=== PATIENT | female | born 1965 | race Caucasian/White ===

== ENCOUNTER 2017-04-30 13:59 | Emergency (ER) | payer OTHER ==
[~2017-04-30] VITALS: Ht 160 cm; Wt 74.5 kg
[2017-04-30 14:01] VITALS: BP 144/72; PULSE 86; RESP 16; TEMP 97.8; O2SAT 99
[2017-04-30] MEDS ORDERED: KETOROLAC TROMETHAMINE 30 MG/ML (IVP) VIAL IV PUSH ONE (16:15)
[2017-04-30] MEDS ORDERED: SODIUM CHLORIDE 0.9% FLUSH 10 ML FLUSH IVF PRN (16:15)
[2017-04-30] MEDS ORDERED: ONDANSETRON HCL 4 MG/2 ML VIAL IVP ONE (16:15)
--- NOTE | 2017-04-30 16:15 | PD ---
HPI Chief Complaint: Flank/Kidney Pain Time Seen by Provider: 16:05 Travel History International Travel<30 days: No Contact w/Intl Traveler<30days: No Traveled to known affect area: No History of Present Illness HPI 51-year-old female presents to the emergency department with ongoing left-sided flank pain which she states started approximately 3 weeks ago. Patient was seen by her primary care physician Dr. Pino earlier today, diagnosed with UTI with question of kidney stone. He sent her here for further evaluation and treatment. Patient currently states her pain is 6 out of 10. No vomiting. She states no fever or chills. She had hematuria in her urine. Patient has history of kidney stone in the past when she lived in [place]. She did not require stenting at that time. She is allergic to penicillin. [facility] Social History Alcohol Use: Yes Tobacco Use: No Substance Use: No Allergies-Medications (Allergen,Severity, Reaction): Coded Allergies: Penicillins (Verified Allergy, Unknown, 04/30/17) Reported Meds & Prescriptions Reported Meds & Active Scripts Active Meloxicam 15 Mg Tab 15 Mg PO DAILY Reported Plaquenil (Hydroxychloroquine Sulfate) 200 Mg Tab 200 Mg PO DAILY Take with food Trazodone (Trazodone HCl) 100 Mg Tablet 100 Mg PO HS Review of Systems Except as stated in HPI: all other systems reviewed are Neg General / Constitutional: No: Fever, Chills Eyes: No: Visual changes HENT: No: Headaches Cardiovascular: No: Chest Pain or Discomfort Respiratory: No: Shortness of Breath Gastrointestinal: Positive: Nausea, No: Vomiting, Diarrhea, Abdominal Pain Genitourinary: Positive: Hematuria, Flank Pain, No: Urgency, Frequency, Dysuria , Nocturia, Decreased Urinary Output Musculoskeletal: No: Pain Skin: No Rash Neurologic: No: Weakness Psychiatric: No: Depression Endocrine: No: Polydipsia Hematologic/Lymphatic: No: Easy Bruising Physical Exam Narrative GENERAL: Patient appears in moderate distress. SKIN: Warm and dry. Normal color. Normal turgor. No rash HEAD: Atraumatic. Normocephalic. EYES: Pupils equal and round. No scleral icterus. No injection or drainage. ENT: No nasal bleeding or discharge. Mucous membranes pink and moist. NECK: Trachea midline. No JVD. CARDIOVASCULAR: Regular rate and rhythm. RESPIRATORY: No accessory muscle use. Clear to auscultation. Breath sounds equal bilaterally. GASTROINTESTINAL: Abdomen soft, non-tender, nondistended. Hepatic and splenic margins not palpable. Question CVA tenderness on the left greater than the right. MUSCULOSKELETAL: Extremities without clubbing, cyanosis, or edema. No obvious deformities. NEUROLOGICAL: Awake and alert. No obvious cranial nerve deficits. Motor grossly within normal limits. Five out of 5 muscle strength in the arms and legs. Normal speech. PSYCHIATRIC: Appropriate mood and affect; insight and judgment normal. Data Data Last Documented VS Vital Signs Date Time Temp Pulse Resp B/P (MAP) Pulse Ox O2 Delivery O2 Flow Rate FiO2 04/30/17 19:18 71 16 115/71 (86) 98 04/30/17 14:01 97.8 Orders Orders Complete Blood Count With Diff (04/30/17 14:44) Comprehensive Metabolic Panel (04/30/17 14:44) Urinalysis - C+S If Indicated (04/30/17 14:44) Lipase (04/30/17 14:44) Act Partial Throm Time (Ptt) (04/30/17 14:44) Prothrombin Time / Inr (Pt) (04/30/17 14:44) Iv Access Insert/Monitor (04/30/17 16:06) Ecg Monitoring (04/30/17 16:06) Sodium Chloride 0.9% Flush (Ns Flush) (04/30/17 16:15) Ondansetron Inj (Zofran Inj) (04/30/17 16:15) Ct Abd/Pel W/O Iv Contrast (04/30/17 16:06) Ketorolac Inj (Toradol Inj) (04/30/17 16:15) Urine Culture (04/30/17 18:00) Ed Discharge Order (04/30/17 19:27) Labs Laboratory Tests Test 04/30/17 15:44 04/30/17 18:00 White Blood Count 10.9 TH/MM3 Red Blood Count 5.10 MIL/MM3 Hemoglobin 15.8 GM/DL Hematocrit 46.1 % Mean Corpuscular Volume 90.5 FL Mean Corpuscular Hemoglobin 31.1 PG Mean Corpuscular Hemoglobin Concent 34.3 % Red Cell Distribution Width 13.2 % Platelet Count 270 TH/MM3 Mean Platelet Volume 8.2 FL Neutrophils (%) (Auto) 70.8 % Lymphocytes (%) (Auto) 21.6 % Monocytes (%) (Auto) 6.2 % Eosinophils (%) (Auto) 0.6 % Basophils (%) (Auto) 0.8 % Neutrophils # (Auto) 7.7 TH/MM3 Lymphocytes # (Auto) 2.3 TH/MM3 Monocytes # (Auto) 0.7 TH/MM3 Eosinophils # (Auto) 0.1 TH/MM3 Basophils # (Auto) 0.1 TH/MM3 CBC Comment DIFF FINAL Differential Comment Prothrombin Time 10.0 SEC Prothromb Time International Ratio 1.0 RATIO Activated Partial Thromboplast Time 25.4 SEC Blood Urea Nitrogen 8 MG/DL Creatinine 1.02 MG/DL Random Glucose 81 MG/DL Total Protein 8.1 GM/DL Albumin 4.7 GM/DL Calcium Level 9.2 MG/DL Alkaline Phosphatase 94 U/L Aspartate Amino Transf (AST/SGOT) 23 U/L Alanine Aminotransferase (ALT/SGPT) 31 U/L Total Bilirubin 0.4 MG/DL Sodium Level 140 MEQ/L Potassium Level 3.7 MEQ/L Chloride Level 104 MEQ/L Carbon Dioxide Level 30.0 MEQ/L Anion Gap 6 MEQ/L Estimat Glomerular Filtration Rate 57 ML/MIN Lipase 134 U/L Urine Color YELLOW Urine Turbidity CLEAR Urine pH 5.5 Urine Specific [place] 1.009 Urine Protein TRACE mg/dL Urine Glucose (UA) NEG mg/dL Urine Ketones NEG mg/dL Urine Occult Blood SMALL Urine Nitrite NEG Urine Bilirubin NEG Urine Urobilinogen LESS THAN 2.0 MG/DL Urine Leukocyte Esterase TRACE Urine RBC 4 /hpf Urine WBC 9 /hpf Urine Squamous Epithelial Cells 2 /hpf Urine Bacteria FEW /hpf Urine Mucus FEW /lpf Microscopic Urinalysis Comment CULTURE INDICATED MDM Medical Decision Making Medical Screen Exam Complete: Yes Emergency Medical Condition: Yes Medical Record Reviewed: Yes Differential Diagnosis . Urinary Infection. Pyelonephritis. Renal colic. Renal stones. Narrative Course Patient is medically stable at time of exam. IV access is obtained patient is given 30 mg Toradol IV. Patient labs are drawn including CBC, CMP, and urinalysis. CT of the abdomen/pelvis ordered without contrast. Labs are unremarkable. Urine does show some signs of infection. Urine cultures placed. CT scan shows no sign of active pyelonephritis or renal stone or retraction. Patient had relief with Toradol IV. Patient already on antibiotic from her primary care physician. Patient should continue the antibiotic as previously prescribed, Patient is given meloxicam 15 mg daily #10 for the pain. Patient should rest and push fluids and follow-up with her primary care physician within the week. Diagnosis Primary Impression: UTI (urinary tract infection) Qualified Codes: N30.00 - Acute cystitis without hematuria Referrals: Primary Care Physician Patient Instructions: Dysuria (ED), General Instructions Additional Instructions: Labs are unremarkable. Urine does show some signs of infection. Urine cultures placed. CT scan shows no sign of active pyelonephritis or renal stone or retraction. Patient had relief with Toradol IV. Patient already on antibiotic from her primary care physician. Patient should continue the antibiotic as previously prescribed, Patient is given meloxicam 15 mg daily #10 for the pain. Patient should rest and push fluids and follow-up with her primary care physician within the week. Med/Other Pt SpecificInfo: Prescription(s) given Scripts Meloxicam (Meloxicam) 15 Mg Tab 15 MG PO DAILY for Arthritis Pain, #10 TAB 0 Refills Prov: Tay Muse MD 04/30/17 Disposition: 01 DISCHARGE HOME Condition: Stable Mehdi Murillo Apr 30, 2017 16:15
[2017-04-30 16:18] LABS: AUTOMATED NEUTROPHIL # 7.7 TH/MM3 (1.8-7.7); BASOPHIL # 0.1 TH/MM3 (0-0.2); BASOPHIL % 0.8 % (0.0-2.0); EOSINOPHIL # 0.1 TH/MM3 (0-0.4); EOSINOPHIL % 0.6 % (0.0-4.0); HEMATOCRIT 46.1 % (35.0-46.0); HEMOGLOBIN 15.8 GM/DL (11.6-15.3); LYMPH % 21.6 % (9.0-44.0); LYMPHOCYTE # 2.3 TH/MM3 (1.0-4.8); MEAN CELL VOLUME 90.5 FL (80.0-100.0); MEAN CORPUSCULAR HEMOGLOBIN 31.1 PG (27.0-34.0); MEAN CORPUSCULAR HGB CONC 34.3 % (32.0-36.0); MEAN PLATELET VOLUME 8.2 FL (7.0-11.0); MONO % 6.2 % (0.0-8.0); MONOCYTE # 0.7 TH/MM3 (0-0.9); NEUT % 70.8 % (16.0-70.0); PLATELET COUNT 270 TH/MM3 (150-450); RED CELL DISTRIBUTION WIDTH 13.2 % (11.6-17.2); WHITE BLOOD COUNT 10.9 TH/MM3 (4.0-11.0)
[2017-04-30 16:33] LABS: ALBUMIN 4.7 GM/DL (3.4-5.0); AST (GOT) 23 U/L (15-37); BLOOD UREA NITROGEN 8 MG/DL (7-18); CALCIUM 9.2 MG/DL (8.5-10.1); CHLORIDE 104 MEQ/L (98-107); CREATININE 1.02 MG/DL (0.50-1.00); GLOMERULAR FILTRATION RATE 57 ML/MIN (>89); GLUCOSE,RANDOM 81 MG/DL (74-106); LIPASE 134 U/L (73-393); SODIUM (NA) 140 MEQ/L (136-145)
[2017-04-30 16:35] LABS: ALT (GPT) 31 U/L (10-53)
[2017-04-30 16:36] LABS: ALKALINE PHOSPHATASE 94 U/L (45-117); TOTAL BILIRUBIN ADULT 0.4 MG/DL (0.2-1.0); TOTAL PROTEIN 8.1 GM/DL (6.4-8.2)
--- NOTE | 2017-04-30 17:39 | RADRPT ---
EXAM DATE/TIME: 04/30/2017 16:54 [place] COMPARISON: No previous studies available for comparison. INDICATIONS : Left flank pain for three weeks. ORAL CONTRAST: No oral contrast ingested. RADIATION DOSE: 10.44 CTDIvol (mGy) MEDICAL HISTORY : None SURGICAL HISTORY : None. ENCOUNTER: Initial ACUITY: 3 weeks PAIN SCALE: 8/10 LOCATION: Left upper quadrant TECHNIQUE: Volumetric scanning of the abdomen and pelvis was performed. Using automated exposure control and ad justment of the mA and/or kV according to patient size, radiation dose was kept as low as reasonably achievable to obtain optimal diagnostic quality images. DICOM format image data is available electro nically for review and comparison. FINDINGS: Lung base is are clear. The liver is free of focal defects Spleen, pancreas, adrenals and kidneys are unremarkable There are no renal calcifications evident. There is no inflammatory changes There is limited or adenopathy In the pelvis or diverticuli in the sigmoid colon. There is 4 cm cystic mass left adnexal region. T here is no free fluid. Review of bone windows reveals only mild degenerative changes lumbar spine. CONCLUSION: 1. 4 cm partially cystic mass left adnexal region without free fluid 2. There are no renal calcifications identified 3. There is calcification in the mid pelvis readily shaped that does not appear to be within the the expected course of the ureter. There is nothing to suggest obstruction. Celio Ramirez MD FACR on April 30, 2017 at 17:28 Board Certified Radiologist. This report was verified electronically.
[2017-04-30 18:19] LABS: BACTERIA, URINE FEW /hpf; BILIRUBIN, URINE NEG (NEG); BLOOD, URINE SMALL (NEG); GLUCOSE,URINE NEG (NEG); KETONE, URINE NEG (NEG); MUCUS URINE FEW /lpf (OCC); NITRITE,URINE NEG (NEG); PH, URINE 5.5 (5.0-8.5); SQUAMOUS EPITHELIAL CELL URINE 2 /hpf (0-5); URINE COLOR YELLOW (YELLW/STRAW); URINE LEUKOCYTE ESTERASE TRACE (NEG)
[2017-04-30] MEDS ORDERED: TRAZ100T10 PO (19:06)
[2017-04-30] MEDS ORDERED: PLAQ200T PO (19:06)
[2017-04-30 19:18] VITALS: BP 115/71; PULSE 71; RESP 16; O2SAT 98
[2017-04-30] MEDS ORDERED: MELO15TA20 PO (19:18)
== END 2017-04-30 20:03 | disposition home or self-care (01) ==
LOC: NEPC 13:59
DX: N30.00 Acute cystitis without hematuria (principal)
CPT/HCPCS: 74176; 80053; 81001; 83690; 85025; 85610; 85730; 87086; 96374; 96375; 99285; J1885; J2405

== ENCOUNTER 2017-09-07 01:49 | Emergency (ER) | payer OTHER ==
[~2017-09-07 01:49] MED LIST: MELO15TA20 PO; PLAQ200T PO; TRAZ100T10 PO
[2017-09-07 01:58] VITALS: BP 148/74; PULSE 96; RESP 19; TEMP 97.8; O2SAT 100
--- NOTE | 2017-09-07 03:17 | PD ---
HPI Chief Complaint: Flat Ironer Problem Time Seen by Provider: 02:03 Travel History International Travel<30 days: No Contact w/Intl Traveler<30days: No Traveled to known affect area: No History of Present Illness HPI The patient is a 51 year old female who presents to the [facility] emergency department with a history of recently being diagnosed with a bladder cancer, status post resection by cystoscopy by Dr. Brian on Wednesday morning. She was discharged home after the procedure with home health care. Home health care to come out and evaluate the patient yesterday. The patient reports that she has been regularly emptying the catheter bag. She reports that she last emptied at around 9 PM. She reports that since then she has felt like she has had decreased urine output and abdominal distention. The patient reports that she has had some recent problems with constipation. Her last bowel movement was 3 days ago. She reports that she recently started on Senokot and MiraLAX for the constipation. The patient reports that her urine has been slightly dark in color, however not frankly bloody. On review of systems otherwise, the patient denies having any recent fevers, cough or congestion, neck pain, chest pain, shortness of breath, vomiting, diarrhea, or neurologic symptoms. PFSH Past Medical History Narrative Medical The patient's past medical history is significant for bladder cancer, lupus. ?: Not Past Surgical History Narrative Surgical The patient's past surgical history is significant for a hysterectomy, cystoscopy with bladder tumor resection, appendectomy. Hysterectomy: Yes Social History Alcohol Use: No Tobacco Use: Yes (1 pack per day) Substance Use: No Allergies-Medications (Allergen,Severity, Reaction): Coded Allergies: Penicillins (Verified Allergy, Severe, 09/07/17) Reported Meds & Prescriptions Reported Meds & Active Scripts Active Meloxicam 15 Mg Tab 15 Mg PO DAILY Reported Plaquenil (Hydroxychloroquine Sulfate) 200 Mg Tab 200 Mg PO DAILY Take with food Trazodone (Trazodone HCl) 100 Mg Tablet 100 Mg PO HS Review of Systems Except as stated in HPI: all other systems reviewed are Neg General / Constitutional: No: Fever Eyes: No: Visual changes HENT: No: Headaches Cardiovascular: No: Chest Pain or Discomfort Respiratory: No: Shortness of Breath Gastrointestinal: Positive: Abdominal Pain, Constipation, Changes in Bowel Habits, No: Nausea, Vomiting, Diarrhea Genitourinary: Positive: Decreased Urinary Output, Pelvic Pain, No: Dysuria Musculoskeletal: No: Pain Skin: No Rash Neurologic: No: Weakness Psychiatric: No: Depression Endocrine: No: Polydipsia Hematologic/Lymphatic: No: Easy Bruising Physical Exam Narrative General: The patient is a well-developed well-nourished female in no acute distress. Head and Neck exam: Head is normocephalic atraumatic. Eyes: EOMI, pupils are equal round and reactive to light. Nose: Midline septum with pink mucous membranes Mouth: Dentition unremarkable. Moist mucus membranes. Posterior oropharynx is not erythematous. No tonsillar hypertrophy. Uvula midline. Airway patent. Neck: No palpable lymphadenopathy. No nuchal rigidity. No thyromegaly. Cardiovascular: Regular rate and rhythm without murmurs, gallops, or rubs. No pulse deficit to the extremities on simultaneous auscultation and palpation of her radial artery. Lungs: Clear to auscultation bilaterally. No wheezes, rhonchi, or rales. Abdomen: Soft, with reported suprapubic abdominal discomfort on palpation. No distention palpated. No tenderness otherwise on palpation of the other quadrants of the abdomen. No guarding, rebound, or rigidity. Normal bowel sounds are audible. No tenderness on palpation of McBurney's point. The patient is noted to have a Maynard catheter in place with a presently 300 mL of dark urine in her catheter bag. The patient has urine noted in the catheter tubing. Extremities: No clubbing, cyanosis, or edema. 2+ pulses in all 4 extremities. No calf tenderness on palpation. Back: No costovertebral angle tenderness to palpation. Neurologic Exam: Grossly nonfocal. Skin Exam: No rash noted. Intact skin that is warm and dry. Data Data Last Documented VS Vital Signs Date Time Temp Pulse Resp B/P (MAP) Pulse Ox O2 Delivery O2 Flow Rate FiO2 09/07/17 01:58 97.8 96 19 148/74 (98) 100 Orders Orders Urinary Catheter - Remove (09/07/17 02:22) Urinary Catheter Insert/Apply (09/07/17 02:22) MDM Medical Decision Making Medical Screen Exam Complete: Yes Emergency Medical Condition: Yes Medical Record Reviewed: Yes Differential Diagnosis Catheter obstruction blood clot, versus mucus clot, versus decreased urine output from decreased p.o. intake Narrative Course During the course of the patient's emergency department visit, the patient's history, examination, and differential diagnosis were reviewed with the patient. The patient was agreeable with the plan for us to irrigate the catheter in case a mucous plug or a blood clot is blocking the free flow of urine. If the catheter is unable to be irrigated, she is agreeable with the plan to replace the catheter. The patient's catheter is a 20 Irish. The patient's catheter was irrigated and free flow of urine was noted. The patient was reassured regarding the function of the Maynard catheter. The patient continues to have good urine output in the emergency department. The patient will be discharged home. She reports that she does have home health coming out again in the morning. The patient is resting comfortably and feels better, is alert and in no distress. The patient's examination findings were discussed with the patient. The repeat examination is unremarkable and benign. The history, exam, diagnostic testing, and current condition do not suggest any significant pathology to warrant further testing, continued ED treatment, admission, or surgical evaluation at this point. The vital signs have been stable. The patient does not have uncontrollable pain, intractable vomiting, or other significant symptoms. The patient's condition is stable and appropriate for discharge. The patient will pursue further outpatient evaluation with a primary care physician or other designated or consulting physician as indicated in the discharge instructions. The patient is instructed to report back to the emergency department immediately for reexamination in the mean time if he/ she develops any new or worsening signs or symptoms. The patient expressed understanding and was agreeable with this plan. Diagnosis Primary Impression: Maynard catheter problem Qualified Codes: T83.9XXA - Unspecified complication of genitourinary prosthetic device, implant and graft, initial encounter Referrals: Gomez Brian MD 2 days Patient Instructions: Maynard Catheter Placement and Care (ED), General Instructions Med/Other Pt SpecificInfo: No Change to Meds Disposition: 01 DISCHARGE HOME Condition: Stable Asia Rojo MD September 07, 2017 03:17
== END 2017-09-07 04:05 | disposition home or self-care (01) ==
LOC: NEPE 01:49
DX: T83.9XXA Unspecified complication of genitourinary prosthetic device, implant and graft, initial encounter (principal); C67.9 Malignant neoplasm of bladder, unspecified; F17.200 Nicotine dependence, unspecified, uncomplicated
CPT/HCPCS: 51700

== ENCOUNTER 2017-09-28 06:27 | Day surgery (SDC) | payer OTHER ==
[2017-09-28] VITALS (9 sets, daily range): BP systolic 92–133; BP diastolic 49–81; PULSE 58–85; RESP 16–20; TEMP 97.4–97.8; O2SAT 94–100
[~2017-09-28] VITALS: Ht 160 cm; Wt 74.1 kg
[~2017-09-28 06:27] MED LIST changes: +ADVA250A INH; +AMLO5TAB2 PO; +ASPI-183 PO; -MELO15TA20 PO
[2017-09-28] MEDS ORDERED: LEVOFLOXACIN 500 MG PREMIX 100 ML - nephrostomy tube insertion or exchange IV SCH (07:15)
[2017-09-28] MEDS ORDERED: SODIUM CHLORIDE 0.9% 1000 ML IV SCH (07:15)
[2017-09-28 08:00] LABS: AUTOMATED NEUTROPHIL # 2.8 TH/MM3 (1.8-7.7); BASOPHIL # 0.1 TH/MM3 (0-0.2); BASOPHIL % 1.2 % (0.0-2.0); EOSINOPHIL # 0.3 TH/MM3 (0-0.4); EOSINOPHIL % 5.5 % (0.0-4.0); HEMATOCRIT 40.5 % (35.0-46.0); HEMOGLOBIN 13.7 GM/DL (11.6-15.3); LYMPH % 30.3 % (9.0-44.0); LYMPHOCYTE # 1.6 TH/MM3 (1.0-4.8); MEAN CELL VOLUME 88.4 FL (80.0-100.0); MEAN CORPUSCULAR HEMOGLOBIN 29.9 PG (27.0-34.0); MEAN CORPUSCULAR HGB CONC 33.9 % (32.0-36.0); MEAN PLATELET VOLUME 7.7 FL (7.0-11.0); MONO % 9.9 % (0.0-8.0); MONOCYTE # 0.5 TH/MM3 (0-0.9); NEUT % 53.1 % (16.0-70.0); PLATELET COUNT 233 TH/MM3 (150-450); RED BLOOD COUNT 4.58 MIL/MM3 (4.00-5.30); RED CELL DISTRIBUTION WIDTH 13.6 % (11.6-17.2); WHITE BLOOD COUNT 5.3 TH/MM3 (4.0-11.0)
[2017-09-28 08:09] LABS: PROTHROMBIN TIME - PATIENT 10.1 SEC (9.8-11.6)
[2017-09-28] MEDS ORDERED: MIDAZOLAM HCL 5 MG/5 ML VIAL ONE (08:09)
[2017-09-28] MEDS ORDERED: fentaNYL CITRATE 250 MCG/5 ML AMP ONE (08:09)
[2017-09-28 08:16] LABS: BICARBONATE 30.3 MEQ/L (21.0-32.0); CALCIUM 8.7 MG/DL (8.5-10.1); CREATININE 1.18 MG/DL (0.50-1.00)
[2017-09-28] MEDS ORDERED: IOHEXOL 350 MG/ML 50 ML BTL (for RAD DIAG) OTHER ONE (09:00)
--- NOTE | 2017-09-28 09:36 | PD.RAD ---
Post Procedure Progress Note Pre Procedure Diagnosis: (1) Bladder cancer Post Procedure Diagnosis: (1) Bladder cancer Procedure Date: Sep 28, 2017 Supervising Radiologist: Sukhjinder Ramirez Estimated blood loss: 5cc Anesthesia: Local, Conscious Sedation Plan of Activity Patient to Unit: ROPU Patient Condition: Good Additional Comments: Left ureteral stent placed without difficulty. 8 Syriac nephrostomy left in place with have patient return for antegrade study and tube removal in 48 hours See PACS Report for procedural detail/treatment Sukhjinder Ramirez MD Sep 28, 2017 09:36
[2017-09-28] MEDS ORDERED: ONDANSETRON HCL 4 MG/2 ML VIAL IV PUSH ONE (10:25)
[2017-09-28] MEDS ORDERED: ONDANSETRON HCL 4 MG/2 ML VIAL ONE (10:28)
--- NOTE | 2017-09-28 16:04 | RADRPT ---
EXAM DATE: 09/28/2017 10:01 AM EDT AGE/SEX: 51 years / Female INDICATIONS: Patient with history of bladder cancer in need of ureteral stent placement and separate nephrostomy catheter. CLINICAL DATA: This is the patient's initial encounter. Patient reports that signs and symptoms have been present for 1 month and indicates a pain score of 4/10. MEDICAL/SURGICAL HISTORY: Carcinoma, bladder. Hematuria. UTI. Ovarian mass. TURBT. Cystoscopy COMPARISON: No prior exams available for comparison. FLUORO TIME (min): 11.6 IMAGE SERIES: 4 SEDATION TIME (min): 60 CONTRAST (cc): 80cc Omnipaque (iohexol) 350 MEDICATION(S): 5mg midazolam (Versed) IV 250mcg fentanyl (Sublimaze) IV Prophylactic antibiotics were administered with appropriate pre-procedure timing. Vancomycin within 2 hrs of procedure, Ancef (or alternative) within 1 hr of procedure. DEVICE(S): 8 [place] nephrostomy catheter Expel 8 [place] Polaris catheter X20CM PROCEDURE: 1. Ultrasound guided puncture of the renal collecting system. 2. Percutaneous antegrade pyelogram. 3. Ureteral stent placement. 4. Nephrostomy tube placement. 5. Conscious sedation with continuous EKG and oximetry monitoring. The risks, benefits and alternatives to the procedure were explained and verbal and written consent w as obtained. The site was prepped in sterile fashion. Full sterile technique was used, including ca p, mask, sterile gloves and gown and a large sterile sheet. Hand hygiene and 2% chlorhexidine and/or betadine/alcohol prep was utilized per protocol for cutaneous antisepsis. Sterile gel and sterile p robe cover were utilized for ultrasound guidance. The skin and subcutaneous tissues were infiltrated with local anesthetic solution. With ultrasound and fluoroscopic guidance the target calyx was punctured and access was gained to the collecting system. Antegrade pyelogram was performed to delineate the urinary tract. Two guidewires were placed one distally within the bladder and a second more proximally. The prescribed ureteral stent was place d with its distal tip in the bladder. Over the second guidewire the prescribed nephrostomy tube was p laced within the renal pelvis. Repeat pyelogram demonstrates good position of the catheters Conscious sedation was performed with the prescribed dosages and duration as above in the presence of an independent trained radiology nurse to assist in the monitoring of the patient. EKG and oximetry remained stable throughout the procedure. The patient tolerated the procedure well and there were no complications. The patient was sent to post anesthesia recovery in stable condition. CONCLUSION: 1. Uncomplicated nephrostomy and ureteral stent placement. 2. The patient tolerated the procedure well. She will return in 48 hours for antegrade pyelogram and removal of the nephrostomy tube. Electronically signed by: Sukhjinder Ramirez MD 09/28/2017 4:03 PM EDT
== END 2017-09-28 13:55 | disposition home or self-care (01) ==
LOC: HROP 06:27 → HRIP 06:30 → HROP 13:55
PROVIDERS: ATTEND Urology
DX: C67.9 Malignant neoplasm of bladder, unspecified (principal); R31.9 Hematuria, unspecified; N39.0 Urinary tract infection, site not specified; Z01.818 Encounter for other preprocedural examination
CPT/HCPCS: 50695; 80048; 85025; 85610; 85730; 99152; 99153; C1729; C1769; C1887; C1894; C2617; J1956; J2250; J2405; J3010; J7030; Q9967

== ENCOUNTER 2017-10-01 08:25 | Day surgery (SDC) | payer OTHER ==
[~2017-10-01] VITALS: Ht 160 cm; Wt 74.1 kg
[~2017-10-01 08:25] MED LIST changes: -AMLO5TAB2 PO
[2017-10-01] MEDS ORDERED: SODIUM CHLORIDE 0.9% 1000 ML IV SCH (08:45)
[2017-10-01 08:50] VITALS: BP 133/91; PULSE 93; RESP 20; TEMP 97.5; O2SAT 98
[2017-10-01] MEDS ORDERED: LEVOFLOXACIN 500 MG TAB PO ONE (09:15)
[2017-10-01 10:55] VITALS: BP_SYST 133; BP_SYST 142; BP_DIAS 71; BP_DIAS 91; PULSE 76; RESP 20; TEMP 97.5; TEMP 97.6; O2SAT 98; O2SAT 99
[2017-10-01 11:10] VITALS: BP 116/52; PULSE 69; RESP 20; O2SAT 96
[2017-10-01 11:40] VITALS: BP 95/57; PULSE 77; RESP 20; O2SAT 96
[2017-10-01 12:40] VITALS: BP 102/54; PULSE 72; RESP 20; O2SAT 96
--- NOTE | 2017-10-01 14:32 | RADRPT ---
EXAM DATE: 10/01/2017 2:11 PM EDT AGE/SEX: 51 years / Female INDICATIONS: Patient with history of bladder cancer in need of nephrostomy tube evaluation with poss ible removal. CLINICAL DATA: This is the patient's subsequent encounter. Patient reports that signs and symptoms h ave been present for 1 month and indicates a pain score of 0/10. MEDICAL/SURGICAL HISTORY: Carcinoma, bladder. Hematuria.UTI.Ovarian mass.Lupus. Hysterectomy.Cy stoscopy.Bladder tumor resection.Appendectomy. COMPARISON: No prior exams available for comparison. FLUORO TIME (min): 0.63 IMAGE SERIES: 2 CONTRAST (cc): 5cc Omnipaque (iohexol) 350 DEVICE(S): . . PROCEDURE: 1. Antegrade pyelogram. 2. Nephrostomy tube removal. The risks, benefits and alternatives to the procedure were explained and verbal and written consent w as obtained. The site was prepped in sterile fashion. Full sterile technique was used, including ca p, mask, sterile gloves and gown and a large sterile sheet. Hand hygiene and 2% chlorhexidine and/or betadine/alcohol prep was utilized per protocol for cutaneous antisepsis. The skin and subcutaneous tissues were infiltrated with local anesthetic solution. With fluoroscopic guidance the existing nephrostomy catheter was injected. Contrast injection shows free flow of injected contrast down the left ureter through the existing ureteral stent and into the urinary bladder. There is no evidence of residual obstruction, therefore the tube was removed. Direc t manual pressure was applied to the site. There were no complications and the patient was sent to post anesthesia recovery in stable condition. CONCLUSION: Satisfactory patency of left ureteral stent. Uncomplicated nephrostomy tube removal as above. Electronically signed by: Germain Garcia MD 10/01/2017 2:31 PM EDT
== END 2017-10-01 13:05 | disposition home or self-care (01) ==
LOC: HROP 08:25 → HRIP 08:26 → HROP 13:05
PROVIDERS: ATTEND Urology
DX: C67.9 Malignant neoplasm of bladder, unspecified (principal); R31.9 Hematuria, unspecified; N39.0 Urinary tract infection, site not specified; N39.3 Stress incontinence (female) (male); N13.30 Unspecified hydronephrosis; M32.9 Systemic lupus erythematosus, unspecified
CPT/HCPCS: 50389; 50431